=== PATIENT | female | born 1975 | race Asian ===

== ENCOUNTER 2017-04-16 06:36 | Day surgery (SDC) | payer OTHER ==
[2017-04-16] VITALS (7 sets, daily range): BP systolic 118–150; BP diastolic 56–73; PULSE 72–81; RESP 10–18; Ht 152.4 cm; Wt 51.2 kg
[~2017-04-16] VITALS: Ht 152.4 cm; Wt 51.2 kg
[~2017-04-16 06:36] MED LIST: CEFAZOLIN 1 GM/50 ML (PMX) 50 ML IVPB SCH; SOD CHLORIDE 0.9% 1,000 ML IV SCH
[2017-04-16] MEDS ORDERED: EPHEDrine SULFATE 50 MG/5 ML SYG ONE (07:00)
[2017-04-16] MEDS ORDERED: PROPOFOL 200 MG INJ ONE (07:00)
[2017-04-16] MEDS ORDERED: CEFAZOLIN 1 GM INJ ONE (07:00)
[2017-04-16] MEDS ORDERED: ACETAMINOPHEN 1000 MG/100 ML IVPB ONE (07:00)
[2017-04-16] MEDS ORDERED: LIDOCAINE 2% (SDV) 5 ML INJ ONE (13:45)
[2017-04-16] MEDS ORDERED: MIDAZOLAM 1 MG/ML 2 ML INJ ONE (13:45)
[2017-04-16] MEDS ORDERED: FENTAnyl 50 MCG/ML VIAL ONE (13:45)
[2017-04-16] MEDS ORDERED: ONDANSETRON 4 MG INJ ONE (13:50)
[2017-04-16] MEDS ORDERED: FAMOTIDINE 20 MG INJ ONE (13:50)
[2017-04-16] MEDS ORDERED: DEXAMETHASONE 4 MG/ML 1 ML INJ ONE (13:50)
--- NOTE | 2017-04-16 15:13 | SIPON ---
Date/Time of Note Date/Time of Note DATE: 04/16/17 TIME: 15:10 Operative Report Preoperative Diagnosis Ductal carcinoma in situ left breast Postoperative Diagnosis Same Operation/Procedure Performed Needle directed left partial mastectomy Surgeon see signature line veterinary technician assistant Dr Platt Second assist: GARRETT RAJPUT MD Anesthesia: general Estimated blood loss: 10 - 50 ml's Transfusion Required none Specimen Left partial mastectomy specimen Grafts/Implants none Complications none MUSTAPHA KIM MD Apr 16, 2017 15:13
[2017-04-16] MEDS ORDERED: HYDROmorphONE (0.2 MG/ML) 10ML SYG IV ONE (15:22)
[2017-04-16] MEDS ORDERED: EPHEDrine SULFATE 50 MG/5 ML SYG IV PRN (15:30)
[2017-04-16] MEDS ORDERED: OXYCODONE/ACETAMINOPHEN (5/325) TAB PO PRN ×2 (15:30)
[2017-04-16] MEDS ORDERED: KETOROLAC 30 MG INJ IV PRN (15:30)
[2017-04-16] MEDS ORDERED: hydrALAzine 20 MG INJ IV PRN (15:30)
[2017-04-16] MEDS ORDERED: ONDANSETRON 4 MG INJ IV PRN (15:30)
[2017-04-16] MEDS ORDERED: HYDROmorphONE (0.2 MG/ML) 10ML SYG IV PRN ×3 (15:30)
[2017-04-16] MEDS ORDERED: MIDAZOLAM 1 MG/ML 2 ML INJ IV PRN (15:30)
[2017-04-16] MEDS ORDERED: MEPERIDINE 25 MG INJ IV PRN (15:30)
[2017-04-16] MEDS ORDERED: METOCLOPRAMIDE 10 MG INJ IV PRN (15:30)
--- NOTE | 2017-04-17 07:16 | OPR ---
DATE OF OPERATION: 04/16/2017 PREOPERATIVE DIAGNOSIS: Ductal carcinoma in situ, right breast. POSTOPERATIVE DIAGNOSIS: Ductal carcinoma in situ, right breast. OPERATION PERFORMED: Needle-directed right partial mastectomy using 2-wire bracketing technique. ANESTHESIA: General. ANESTHESIOLOGIST: Nurse digital content coordinator, Madan Patel. SURGEON: Víctor Mane MD. PROCESS CONTROL OPERATOR: Dr. Andrea Platt and Dr. Kong ____. INDICATIONS FOR PROCEDURE: The patient is a 41-year-old female, who underwent screening mammography and was found to have suspicious microcalcifications at approximately the 2 to 3 o'clock location o f the left breast. Sterotactic biopsy confirmed DCIS. On review of the case, there were 2 groups o f calcifications approximately 2 cm apart from each other. Therefore, the decision was made to perf orm a needle-directed partial mastectomy utilizing 2-needle bracketing technique. The patient conse nted and was scheduled for surgery. DESCRIPTION OF PROCEDURE: On the morning of surgery, the patient was brought to [facility] where she underwent localization of the lesion performed by attending radi ologist, Dr. Davida Singleton. Subsequently, she was brought to the operating theater, placed under ge neral anesthesia. The left breast was prepped and draped in usual sterile fashion. A curvilinear i ncision was then made in the upper outer quadrant of the left breast in the region of the previously placed localization wire. Subcutaneous tissue was dissected with cautery. Skin edges were elevate d and wide circumferential dissection of the tissue associated with the [address] Sp ecimen was elevated, transected, oriented, and sent for radiographic confirmation of capture. Captu re was confirmed. The specimen was then sent for permanent pathologic analysis. The wound was irri gated. Residual bleeding was controlled with cautery, and the skin was then reapproximated with 4-0 nylon suture in subcuticular fashion, and benzoin and Steri-Strips were applied. Patient tolerated the procedure well. The estimated blood loss was approximately 30 mL. There were no complications and the patient was transported in stable condition to the recovery room. Dictated By: VÍCTOR PRETTY/KIA Conf#: [id number] DID#: [id number]
== END 2017-04-16 17:30 | disposition home or self-care (01) ==
LOC: SDS 06:36
PROVIDERS: ATTEND Surgery Surgical Oncology
DX: D05.11 Intraductal carcinoma in situ of right breast (principal); K21.9 Gastro-esophageal reflux disease without esophagitis; G62.9 Polyneuropathy, unspecified
CPT/HCPCS: 19301; 88307; J0131; J0690; J1100; J1170; J2250; J2405; J3010; Z7512; Z7610